=== PATIENT | female | born 1990 | race American Indian/Alaskan Native ===

== ENCOUNTER 2019-09-25 16:09 | Emergency (ER) | payer OTHER ==
[2019-09-25 16:23] VITALS: BP 105/59
[2019-09-25] MEDS ORDERED: dexAMETHasone 20 MG/5 ML VIAL IM ONE (18:38)
[2019-09-25] MEDS ORDERED: PENICILLIN G BENZATHINE 1.2 MILLION UNIT/2 ML INJ IM ONE (18:38)
--- NOTE | 2019-09-25 18:38 | Emergency Department Report ---
Chief Complaint: Upper Respiratory Infection Stated Complaint: WEAK, THROAT PAIN Time Seen by Provider: 09/25/19 18:33 - HPI History of Present Illness: 29 yo with fever, weakness, sore throat, runny nose since Friday. Weakness improved but sore throat worsened. - Exam Vital Signs: Vital Signs 09/25/19 16:16 Temperature 99.3 F Pulse Rate 88 Respiratory 20 Rate Blood Pressure 105/59 O2 Sat by Pulse 98 Oximetry Physical Exam: well appearing erythematous tonsils edematous symetrical not touching uvula lungs CTA B HEENT: +rhinorrhea abd soft NT ND neuro: TORRES x 4, normal keke MSE screening note: Focused history and physical exam performed. Due to findings the following was ordered: streptococcal pharyngitis ED Disposition for MSE Clinical Impression: Strep throat Disposition: DC- TO HOME OR SELFCARE Is pt being admited?: No Does the pt Need Aspirin: No Condition: Stable Instructions: Strep Throat (ED) Referrals: TATE YBARRA MD [Staff Physician] - 3-5 Days Forms: Work/School Release Form(ED)
== END 2019-09-25 18:50 | disposition home or self-care (01) ==
LOC: ED 16:09
DX: J02.9 Acute pharyngitis, unspecified (principal)
CPT/HCPCS: 96372; 99282; J0561; J1100